=== PATIENT | female | born 1935 | race African-American/Black ===

== ENCOUNTER 2018-07-08 14:48 | Inpatient (IN) | payer MEDICARE, MEDICAID ==
[~2018-07-08] VITALS: Ht 154.9 cm; Wt 65.8 kg
[2018-07-08] MEDS ORDERED: AMLODIPINE BESY10 MG ORAL (20:09)
[2018-07-08] MEDS ORDERED: BENAZEPRIL HCL20 MG ORAL (20:09)
[2018-07-08] MEDS ORDERED: HYDROCHLOROTHIA25 MG ORAL (20:09)
[2018-07-08 21:41] VITALS: BP 179/91
[2018-07-08] MEDS ORDERED: traMADol 50mg tab ORAL PRN (22:15)
[2018-07-08] MEDS ORDERED: Artificial Tears 1.4% Op Soln BOTH EYES PRN (22:15)
--- NOTE | 2018-07-08 23:30 | Consultation ---
DATE OF CONSULTATION: 07/08/2018 CARDIOLOGY CONSULT: CONSULTING PHYSICIAN: Christiano Ivey M.D. REFERRING PHYSICIAN: Jaylon Szymanski M.D. REASON FOR ADMISSION: Heart block. HISTORY OF PRESENT ILLNESS: This is an 82-year-old female, known to me for many years of cardiovascular care. She has a history of hypertensive heart disease and has had a right bundle-branch block for many years. She has been asymptomatic over the past years; however, her baseline heart rate has decreased into the 55 to 70 range with a first-degree AV block developing, but all was asymptomatic. Her baseline echocardiogram in March of this year revealed a normal ejection fraction with mild concentric hypertrophy and minimal degenerative valve disease. Over the past two days, she has been feeling weak with some chest discomfort and [place] [facility] [place] was noted to have a slow heart rate and episodes of complete heart block and escape rhythm in the high 30s. Her blood pressure remained stable. She apparently ruled out for myocardial infarction and was transferred to my care for further management. PAST MEDICAL HISTORY: Blindness, seasonal asthma, hypertension, conduction system disease of the heart, osteoporosis, degenerative disk disease, and hyperlipidemia. ALLERGIES: Penicillin. SOCIAL HISTORY: Negative for smoking, alcohol, or substance abuse. She is a [employer]. She refuses blood products. FAMILY HISTORY: Notable for diabetes in her sister. REVIEW OF SYSTEMS: She is legally blind. She is hard of hearing. There is no history of blood clots in the legs. She has not been on steroids. There is no history of seizure or stroke. She has been on anti-lipid drugs in the past. There is no history of diabetes or thyroid impairment. There is no history of melena or bright red blood per rectum. PHYSICAL EXAMINATION: VITAL SIGNS: Blood pressure 179/91, pulse 61, respiratory rate 18, and afebrile. NECK: Supple. Jugular venous pressure normal. LUNGS: Clear. CARDIAC: Regular rhythm. Slow rate. Normal S1, S2. A 1/6 systolic murmur at apex. ABDOMEN: Soft and nontender. EXTREMITIES: No edema. NEUROLOGIC: She is blind. Nonfocal. LABORATORY AND DIAGNOSTIC DATA: Labs and EKG are [place] [facility] [place]. IMPRESSION: This is an 82-year-old female with hypertensive heart disease and a longstanding history of conduction system disease that has been asymptomatic. She now presents with advanced conduction system disease and episodes of complete heart block. While she has had chest pain, so far there is no evidence of an acute myocardial infarction. RECOMMENDATIONS: 1. Cardiac monitoring. 2. Hydration. 3. Avoid tight blood pressure control. 4. Serial troponin levels. 5. Repeat EKG. 6. EP evaluation for permanent pacemaker. 7. Check thyroid function. Christiano Ivey M.D. DR: WENCESLAO JOB#: [id number] CC:
[2018-07-09] VITALS (12 sets, daily range): BP systolic 131–185; BP diastolic 67–101
[2018-07-09] MEDS: HydrALAZINE 25mg tab ORAL PRN ×2 (01:32→16:43)
[2018-07-09 07:33] LABS: BASOPHILS % (AUTO) 1.2 % (0.0-2.0); EOSINOPHILS % (AUTO) 1.5 % (0.0-3.0); HEMATOCRIT 36.5 % (37.0-47.0); HEMOGLOBIN 12.4 G/DL (12.0-16.0); LYMPHOCYTES % (AUTO) 35.3 % (20.0-45.0); MEAN CORPUSCULAR VOLUME 85 FL (80-99); MONOCYTES % (AUTO) 10.6 % (1.0-10.0); NEUTROPHILS % (AUTO) 51.4 % (45.0-75.0); PLATELET COUNT 250 K/UL (150-450); RED BLOOD COUNT 4.29 M/UL (4.20-5.40); RED CELL DISTRIBUTION WIDTH 12.2 % (11.6-14.8); WHITE BLOOD COUNT 5.2 K/UL (4.8-10.8)
--- NOTE | 2018-07-09 08:04 | Consultation ---
Consult Note Consult Note Cardiac EP Full consult dictated #[id number] Mrs. Carranza is an 82 year woman w/ HTN adm w/ intermittent high grade ( 2:1) av block, v rate 30s-40s associated w/ dizziness and CP. Mild trop elevation - suspect demand ischemia. She appears w/ irreversible , symptomatic AVN or infranodal conduction disease. She is on no meds which would cause bradycardia. TFTs are normal Agree w/ recommendation for permanent pacing. D/w pt, who is agreeable to proceeding. Brenda Potts MD Jul 09, 2018 08:04
--- NOTE | 2018-07-09 08:04 | Pre-Procedure Note/Attestation ---
Pre-Procedure Note/Attestation Complete Prior to Procedure Planned Procedure: left Procedure Narrative: permanent pacemaker Indications for Procedure Pre-Operative Diagnosis: second deg av block w/ 2 to 1 conduction, v 30-40s associated w/ dizziness Attestation I attest that I discussed the nature of the procedure; its benefits; risks and complications; and alternatives (and the risks and benefits of such alternatives ), prior to the procedure, with the patient (or the patient's legal sales representative adding machines). I attest that, if there was a reasonable possibility of needing a blood transfusion, the patient (or the patient's legal sales representative adding machines) was given the [place] [facility] standardized written summary, pursuant to the Jonathan Herbster Blood Safety Act ([place] Health and Safety Code # 1645, as amended). I attest that I re-evaluated the patient just prior to the surgery and that there has been no change in the patient's H&P, except as documented below: none Brenda Potts MD Jul 09, 2018 08:04
[2018-07-09 08:06] LABS: ALANINE AMINOTRANSFERASE 75 U/L (12-78); ALBUMIN/GLOBULIN RATIO 0.7 (1.0-2.7); ALKALINE PHOSPHATASE 68 U/L (46-116); ANION GAP 7 mmol/L (5-15); ASPARTATE AMINO TRANSFERASE 39 U/L (15-37); BILIRUBIN,TOTAL 0.4 MG/DL (0.2-1.0); BLOOD UREA NITROGEN 19 mg/dL (7-18); CALCIUM 9.3 MG/DL (8.5-10.1); CARBON DIOXIDE 26 MMOL/L (21-32); CHLORIDE 109 MMOL/L (98-107); CREATININE 0.8 MG/DL (0.55-1.30); POTASSIUM 3.7 MMOL/L (3.5-5.1); SODIUM 142 MMOL/L (136-145)
[2018-07-09 08:28] LABS: CKMB 2.2 NG/ML (0.0-3.6)
[2018-07-09] MEDS: Heparin 5000 units/ml inj SUBQ SCH ×2 (09:00→21:20)
[2018-07-09] MEDS: Aspirin Baby 81mg ORAL SCH (09:48)
[2018-07-09] MEDS: Vancomycin 750mg/NS 250ml 250 ML IVPB SCH (09:50)
--- NOTE | 2018-07-09 10:00 | Consultation ---
DATE OF CONSULTATION: 07/09/2018 CARDIAC ELECTROPHYSIOLOGY CONSULTATION CONSULTING PHYSICIAN: Brenda Potts M.D. REASON FOR CONSULT: High-grade AV block. HISTORY OF PRESENT ILLNESS: The patient is a very pleasant 82-year-old woman with history of hypertension, who presented to [facility] with episodes of chest tightness and dizziness. She had no syncope. She was reported to have complete heart block. She was noted to have heart rates in the 30s to 40s. She was transferred to [facility] for care with her usual physicians. On telemetry overnight, she has had sinus rhythm with prolonged first-degree AV block and episodes of 2:1 second-degree AV block, rates in the 30s to 40s. At baseline, she has a right bundle-branch block. MEDICATIONS ON ADMISSION: Benazepril, amlodipine, hydrochlorothiazide. ALLERGIES: Penicillin. PAST MEDICAL HISTORY: As noted above. Hypertension, left rotator cuff tear. PAST SURGICAL HISTORY: Status post removal of polyp from the larynx. SOCIAL HISTORY: The patient is a nonsmoker. Does not drink alcohol. She is a Jehovah Witness. PHYSICAL EXAMINATION: VITAL SIGNS: Blood pressure is 138/86, pulse 54 and regular, respirations 20, and afebrile. GENERAL: Alert, well-developed woman, in no acute distress. HEENT: Normocephalic and atraumatic. Pupils are equal, round, and reactive to light. Sclerae anicteric. Oral mucosa are moist. NECK: Supple. There is no jugular venous distention. No thyromegaly. Carotid pulses are 2+ bilaterally without bruits. LUNGS: Clear to auscultation bilaterally. HEART: Bradycardic. Regular. S1, S2 with a 2/6 systolic ejection murmur at the lower left sternal border. No S3, S4, or rubs. ABDOMEN: Soft, nontender. No palpable mass. EXTREMITIES: No cyanosis, clubbing, or edema. Distal lower extremity pulses are 2+ bilaterally. LABORATORY AND DIAGNOSTIC DATA: Hemoglobin 12.4, white blood count 5200, platelets 250,000. Troponin 0.26. Chemistries are pending at [facility]. Chem-panel was normal with potassium of 3.9, BUN 18, and creatinine 0.8. Troponin there was 0.06. TSH 1.85 and free T4 1.2. EKG from [facility] shows sinus rhythm with 2:1 second-degree AV block, ventricular rate of 42 beats per minute. Telemetry here shows sinus rhythm with intermittent first-degree AV block and 2:1 second-degree AV block, rates as low as the 30s. EKG on admission here shows sinus rhythm, first-degree AV block with MA interval of about 400 milliseconds, 66 beats per minute, right bundle-branch block, and right axis deviation. No old EKG is available for comparison. Chest x-ray is pending. ASSESSMENT AND RECOMMENDATIONS: The patient is an 82-year-old woman with history of hypertension, who presents with chest pain and dizziness. Her EKG has no ischemic changes, however, she has second-degree 2:1 AV block intermittently with heart rates as low as the 30s. Her elevated troponin is likely due to demand ischemia. She is on no medications which would explain her bradycardia and has no evidence for thyroid disorder that would cause bradycardia. Given that she has irreversible AV ivan versus infranodal conduction disease, I would agree with recommendation for permanent dual-chamber pacemaker. We would continue to trend troponins. I would obtain an echo to assess left ventricular function. I discussed the pacemaker procedure with the patient and she is in agreement with proceeding. The procedure has been scheduled for later today. Brenad Potts M.D. DR: Mateo JOB#: [id number] CC:
--- NOTE | 2018-07-09 10:45 | History and Physical Report ---
DATE OF ADMISSION: 07/08/2018 CHIEF COMPLAINT: Bradycardia. HISTORY OF PRESENT ILLNESS: The patient is an 82-year-old female. She has history of hypertensive heart disease, chronic right bundle-branch block. She had history of mild asymptomatic bradycardia. She presented to an outside hospital with complaints of chest pain, dizziness, and weakness. She was noted to be in complete heart block with a junctional escape rhythm in the 30s. She was transferred here for continued care. She is currently n.p.o., awaiting pacemaker placement. She is otherwise without complaints. Denies any fevers or chills. No nausea or vomiting. PAST MEDICAL HISTORY: Significant for history of blindness, asthma, hypertension, chronic conduction system disease, history of chronic back pain, osteoporosis, hyperlipidemia. CURRENT MEDICATIONS: Reconciled and reviewed. ALLERGIES: Include penicillin. FAMILY HISTORY: Significant for diabetes. SOCIAL HISTORY: The patient is a [employer]. REVIEW OF SYSTEMS: GENERAL: No fevers or chills. Positive dizziness and weakness. HEENT: No headaches or visual changes. The patient is blind. CARDIOPULMONARY: Mild chest pain, but no shortness of breath. GASTROINTESTINAL: No nausea or vomiting. GENITOURINARY: No urgency or frequency. MUSCULOSKELETAL: No joint pain or swelling. NEUROLOGIC: No evidence of seizures. PHYSICAL EXAMINATION: VITAL SIGNS: Temperature is 98, pulse 54, respirations 18, and blood pressure 138/86. GENERAL: The patient is well developed, in no apparent distress. HEART: Regular rate and rhythm, but bradycardic. LUNGS: Clear. ABDOMEN: Soft, nontender, nondistended. EXTREMITIES: Without clubbing, cyanosis, or edema. LABORATORY DATA: Labs showed white count of 5, hemoglobin 12, hematocrit 36, and platelets of 250,000. Troponin was 0.26. Sodium 142, potassium 3.7, chloride 109, bicarbonate 26, BUN 19, creatinine 0.8. Natriuretic peptide level was 4000. TSH was 5.7. ASSESSMENT: This is a pleasant female with history of hypertension, hyperlipidemia, blindness, asymptomatic bradycardia, who now presents with symptomatic bradycardia and heart block. PLAN: Proceed with pacemaker. Continue antiplatelet therapy. Repeat thyroid function tests. Continue BP treatment. Continue lipid-lowering therapy. Jaylon Szymanski M.D. DR: Darwin JOB#: [id number] CC:
[2018-07-09] MEDS ORDERED: NS 275ml IRRIG ONE (13:00)
[2018-07-09] MEDS ORDERED: Bacitracin Oint 15gm Tube TOPIC ONE (13:00)
[2018-07-09] MEDS ORDERED: NS Irrig 1000ml IRRIG ONE ×2 (13:00→14:21)
[2018-07-09] MEDS ORDERED: Bupivacaine 0.5% Inj 30 ml vial INJ ONE (13:00)
[2018-07-09] MEDS ORDERED: Iothalamate Meglumine 60% 30ML INJ ONE (13:01)
[2018-07-09] MEDS ORDERED: Bacitracin 50000 Units Vial ONE (13:01)
[2018-07-09] MEDS ORDERED: Lidocaine 1% Plain 30 ml INJ ONE ×2 (13:01→13:12)
[2018-07-09] MEDS ORDERED: Midazolam 2mg/2ml Inj ONE (13:13)
[2018-07-09] MEDS ORDERED: Sodium Chloride 10ml vial INJ ONE (13:13)
[2018-07-09] MEDS ORDERED: traMADol 50mg tab ORAL PRN (13:29)
[2018-07-09] MEDS ORDERED: LR 1000ml 1,000 ML IVLG SCH (13:53)
[2018-07-09] MEDS ORDERED: fentaNYL 100 mcg/2 mL IV PRN (14:00)
[2018-07-09] MEDS ORDERED: Hydromorphone 0.5mg/0.5ml inj IVP PRN (14:00)
[2018-07-09] MEDS ORDERED: Norco 5mg/325mg tab ORAL PRN (14:00)
[2018-07-09] MEDS ORDERED: HYDROcodone/Acetamin 7.5/325 tab ORAL PRN (14:00)
[2018-07-09] MEDS ORDERED: LORazepam Inj 2mg/ml 1ml IV PRN (14:00)
[2018-07-09] MEDS ORDERED: Midazolam 2mg/2ml Inj IVP PRN (14:00)
[2018-07-09] MEDS ORDERED: Meperidine 50mg/ml Inj(FOR RIGORS ONLY) IVP PRN (14:00)
[2018-07-09] MEDS ORDERED: Metoclopramide 10mg/2ml Inj IVP PRN (14:00)
[2018-07-09] MEDS ORDERED: oxyCODONE HCL/Acetaminophen 5/325mg ORAL PRN (14:00)
[2018-07-09] MEDS ORDERED: DiphenhydrAMINE 50mg/ml Inj IVP PRN (14:00)
[2018-07-09] MEDS ORDERED: Atropine Sulfate 0.4mg/ml inj IVP PRN (14:00)
--- NOTE | 2018-07-09 14:05 | Anethesia Preoperative Eval ---
Anesthesia Pre-op PMH/ROS General Date of Evaluation: Jul 09, 2018 Time of Evaluation: 13:06 Anesthesiologist: Svetlana ASA Score: ASA 4 Mallampati Score Class I : Soft palate, uvula, fauces, pillars visible Class II: Soft palate, uvula, fauces visible Class III: Soft palate, base of uvula visible Class IV: Only hard plate visible Mallampati Classification: Class II Surgeon: Nicki Diagnosis: CHB Surgical Procedure: Pacemaker Placement Anesthesia History: none Family History: no anesthesia problems Allergies: Coded Allergies: PENICILLIN G (Verified Allergy, Unknown, 07/18/09) Medications: see eMAR Patient NPO?: Yes NPO Date: Jul 09, 2018 NPO Time: 0000 Past Medical History Cardiovascular: Reports: HTN, CAD - Angina, arrhythmia - CHB, other - HL HEENT: Reports: other - Blind Hematology/Immune: Reports: anemia Anesthesia Pre-op Phys. Exam Physician Exam Last Vital Signs Date Time Temp Pulse Resp B/P (MAP) Pulse Ox O2 Delivery O2 Flow Rate FiO2 07/09/18 12:00 62 07/09/18 12:00 97.9 18 179/67 (104) 95 07/09/18 09:00 Room Air Constitutional: NAD Neurologic: CN 2-12 intact Cardiovascular: RRR Respiratory: CTA Gastrointestinal: S/NT/ND Airway Exam Mallampati Score: Class II MO: limited ROM: limited Teeth: missing, intact Anesthesia Pre-op A/P Labs Hematology Test 07/09/18 06:40 White Blood Count 5.2 K/UL (4.8-10.8) Red Blood Count 4.29 M/UL (4.20-5.40) Hemoglobin 12.4 G/DL (12.0-16.0) Hematocrit 36.5 % (37.0-47.0) L Mean Corpuscular Volume 85 FL (80-99) Mean Corpuscular Hemoglobin 28.9 PG (27.0-31.0) Mean Corpuscular Hemoglobin Concent 34.0 G/DL (32.0-36.0) Red Cell Distribution Width 12.2 % (11.6-14.8) Platelet Count 250 K/UL (150-450) Mean Platelet Volume 7.2 FL (6.5-10.1) Neutrophils (%) (Auto) 51.4 % (45.0-75.0) Lymphocytes (%) (Auto) 35.3 % (20.0-45.0) Monocytes (%) (Auto) 10.6 % (1.0-10.0) H Eosinophils (%) (Auto) 1.5 % (0.0-3.0) Basophils (%) (Auto) 1.2 % (0.0-2.0) Chemistry Test 07/08/18 23:00 07/09/18 06:40 Troponin I 0.260 ng/mL (0.000-0.056) 0.258 ng/mL (0.000-0.056) Sodium Level 142 MMOL/L (136-145) Potassium Level 3.7 MMOL/L (3.5-5.1) Chloride Level 109 MMOL/L (98-107) H Carbon Dioxide Level 26 MMOL/L (21-32) Anion Gap 7 mmol/L (5-15) Blood Urea Nitrogen 19 mg/dL (7-18) H Creatinine 0.8 MG/DL (0.55-1.30) Estimat Glomerular Filtration Rate mL/min (>60) Glucose Level 97 MG/DL (74-106) Calcium Level 9.3 MG/DL (8.5-10.1) Magnesium Level 1.7 MG/DL (1.8-2.4) L Total Bilirubin 0.4 MG/DL (0.2-1.0) Aspartate Amino Transf (AST/SGOT) 39 U/L (15-37) H Alanine Aminotransferase (ALT/SGPT) 75 U/L (12-78) Alkaline Phosphatase 68 U/L (46-116) Total Creatine Kinase 178 U/L (26-308) Creatine Kinase MB 2.2 NG/ML (0.0-3.6) Creatine Kinase MB Relative Index 1.2 Pro-B-Type Natriuretic Peptide 4137 pg/mL (0-125) H Total Protein 7.4 G/DL (6.4-8.2) Albumin 3.0 G/DL (3.4-5.0) L Globulin 4.4 g/dL Albumin/Globulin Ratio 0.7 (1.0-2.7) L Thyroid Stimulating Hormone (TSH) 5.783 uiU/mL (0.358-3.740) Risk Assessment & Plan Status Change Before Surgery: No Pre-Antibiotics Dru Gram Ancef IV Given Within 1 Hr of Incision: Yes Time Given: 13:14 Chung Mota MD Jul 09, 2018 14:05
--- NOTE | 2018-07-09 14:07 | Immediate Post-Op Evaluation ---
Immediate Post-Op Evalulation Immediate Post-Op Evalulation Procedure: Pacemaker Placement Date of Evaluation: Jul 09, 2018 Time of Evaluation: 15:19 IV Fluids: 300 NS Blood Products: 0 Estimated Blood Loss: 9 Urinary Output: 0 Blood Pressure Systolic: 131 Blood Pressure Diastolic: 97 Pulse Rate: 61 Respiratory Rate: 16 O2 Sat by Pulse Oximetry: 100 Temperature (Fahrenheit): 97.6 Pain Score (1-10): 2 Nausea: No Vomiting: No Complications 0 Patient Status: awake, reacts, patent, extubated, none Hydration Status: adequate Dru Gram Ancef IV Given Within 1 Hr of Incision: Yes Time Given: 13:14 Chung Mota MD Jul 09, 2018 14:07
--- NOTE | 2018-07-09 15:03 | Operative Note - PDOC ---
Operative Note Operative Note Date of Operation/Procedure: Jul 09, 2018 Pre-op Diagnosis: second deg av block w/ 2 to 1 conduction, v 30-40s associated w/ dizziness Procedure: permanent pacemaker Post-op Diagnosis: same as pre op Post-op Diagnosis: same as pre-op Surgeon: adebayo todd Ground [employer] Supervisor: none Additional Surgeons: none Anesthesiologist: Francesco Mota Anesthesia: local, MAC Specimen: none Complications: none Condition: stable Estimated Blood Loss: minimal Drains: none Implant(s) used?: Yes Indications for Procedure 2nd deg av block, dizziness Description of Procedure dictation # [id number] Brenda Todd MD Jul 09, 2018 15:03
--- NOTE | 2018-07-09 15:26 | Diagnostic Imaging Report ---
INDICATION: Pain, intraoperative TECHNIQUE: Intraoperative imaging during pacemaker placement Fluoroscopy time: And 85 seconds Total dose: 0.87912 mGym2 Total number of images: One COMPARISON: None FINDINGS: Intraoperative imaging demonstrates the lead positions of a pacemaker, lead tips in the expected regions of the right atrium and right ventricular apex IMPRESSION: Intraoperative imaging, as described
--- NOTE | 2018-07-09 16:25 | Diagnostic Imaging Report ---
Indication: Status post pacemaker Technique: One view of the chest Comparison: 2010 Findings: There is left chest pacemaker, lead tips in the expected region of the right atrium and right ventricular apex. The lungs and pleural spaces are clear. Heart size is upper limits of normal. No pneumothorax Impression: Satisfactory position of pacemaker. No radiographic evident complication
--- NOTE | 2018-07-09 17:11 | Cardiology Report ---
APPROVED REPORT EXAM: Two-dimensional and M-mode echocardiogram with Doppler and color Doppler. INDICATION 2nd Degree heart block M-Mode DIMENSIONS IVSd1.8 (0.7-1.1cm)Left Atrium (MM)5.7 (1.6-4.0cm) LVDd3.4 (3.5-5.6cm)Aortic Root2.6 (2.0-3.7cm) PWd1.5 (0.7-1.1cm)Aortic Cusp Exc.1.6 (1.5-2.0cm) LVDs2.0 (2.5-4.0cm) PWs1.8 cm Normal left ventricular chamber size, systolic function and wall motion. Left ventricular ejection fraction estimated to be 65-70 %. Mild left ventricular hypertrophy. No evidence of pericardial effusion. Mild left atrial enlargement. Right ventricular chamber size is at upper normal limits. Right atrial chamber size is within normal limits. Mild focal aortic valve sclerosis with adequate cusp excursion. Mildy thickened mitral valve leaflets with normal excursion. Mild mitral annulus and aortic root calcification. Normal pulmonic valve structure. Normal tricuspid valve structure. IVC is normal in size with physiological collapse. A color flow and spectral Doppler study was performed and revealed: Mild aortic insufficiency. Moderate to severe mitral regurgitation. Normal left ventricular diastolic function. Mild to moderate tricuspid regurgitation. Tricuspid systolic velocities suggests peak right ventricular systolic pressure of 79 mmHg, consistent with severe pulmonary hypertension. Trace pulmonic regurgitation present.
--- NOTE | 2018-07-09 17:45 | Operative Note - Dictated ---
DATE OF OPERATION: 07/09/2018 REPORT OF PERMANENT DUAL-CHAMBER PACEMAKER IMPLANT SURGEON: Brenda Potts M.D. INDICATIONS: High-grade AV block. CLINICAL HISTORY: The patient is an 82-year-old woman who presented with dizziness and was found to be in 2:1 second-degree AV block with baseline right bundle-branch block. Heart rates were in the 30s to 40s. The implanted device is a Biotronik Edora 8, serial number [id number]. Pacing lead in the atrium is a Biotronik Solia, serial number [id number] and in the ventricle was a Solia, serial number [id number]. PACING AND SENSING: In the atrium, sensing is 2.4 millivolts, pacing threshold 0.9 volts at 0.4 milliseconds, lead impedance 448 ohms. In the ventricle, pacing threshold is 0.5 volts at 0.4 milliseconds, sensing NA (100% paced after generator was attached, 10 millivolts prior to generator attachment), lead impedance 624 ohms. FLUOROSCOPY TIME: 3 minutes. X-RAY: 0.98 milligray/m2. ANESTHESIA: Local and intravenous sedation. DESCRIPTION OF PROCEDURE: The patient was was brought to the operating room, received sedation as per the anesthesiologist, Dr. Mota. The left chest was sterilely prepped and draped in the usual manner. The skin and underlying soft tissues over the left deltopectoral groove were infiltrated with 1% Xylocaine local anesthetic. An incision was made. This was carried down to the prepectoral fascia using blunt and Bovie dissection. The left cephalic vein was isolated. A proximal loop and distal tie of silk suture were placed. Two guidewires were advanced under fluoroscopy into the low right atrium. Over one of the guidewires, a 6-Russian SafeSheath was advanced. The guidewire and dilator were removed and the ventricular lead was positioned in the right ventricular apex under fluoroscopy. The screw was advanced under fluoroscopy. The above pacing and sensing thresholds were obtained. There was no diaphragmatic stimulation with pacing at 10 volts. The lead was secured with two nonabsorbable sutures via the suture sleeves. Next, the atrial lead was placed through another 6-Russian introducer that was placed over the remaining guidewire after the guidewire and dilator were removed. The pacing and sensing thresholds were set. A screw was advanced under fluoroscopy and pacing and sensing thresholds were rechecked. There was no diaphragmatic stimulation with pacing at 10 volts in either the atrium or the ventricle. The atrial lead was secured with two nonabsorbable sutures via the suture sleeve. A subcutaneous pocket was created using blunt and Bovie dissection. The pocket was flushed with an antibiotic solution. The pacemaker generator was brought to the field. Atrial and ventricular leads were attached. The setscrews were tightened and checked. The leads and generator were placed into the subcutaneous pocket with the excess lead coiled beneath the generator. The incision was then closed with 2-0 and 4-0 Monocryl after the generator had been secured to the underlying fascia with an 0 silk suture. A sterile dressing was applied. The patient tolerated the procedure well. There were no intraprocedural complications. She was transferred to the recovery area in stable condition. Brenda Potts M.D. DR: Mateo JOB#: [id number] CC:
[2018-07-09] MEDS: Metoprolol Succinate XL 25mg tab ORAL SCH (21:19)
[2018-07-09] MEDS: Atorvastatin 20mg tab ORAL SCH (21:19)
[2018-07-09] MEDS: Tylenol #3 tab (300mg/30mg) ORAL PRN (21:30)
--- NOTE | 2018-07-09 23:29 | Progress Note ---
DATE: 07/09/2018 CARDIOLOGY PROGRESS NOTE SUBJECTIVE: The patient has no shortness of breath, chest pain, or weakness. She is status post permanent pacemaker implant this morning with a Biotronik device. No complications noted. She now has a cardiac rhythm, revealing AV pacing. PHYSICAL EXAMINATION: CHEST: Left chest wall with no swelling or warmth or tenderness. LUNGS: Clear. CARDIAC: Regular. Normal S1 and S2 with no murmur. ABDOMEN: Soft and there is no edema. LABORATORY AND DIAGNOSTIC DATA: Chest x-ray report reveals no pneumothorax. White count 5.2 and hemoglobin 12.4. CK-MB index are negative. Troponin is 0.258, unchanged from yesterday. Pro-natriuretic peptide 4100. Magnesium 1.7. IMPRESSION: 1. Hypertensive and ischemic cardiomyopathy. 2. Advanced conduction system disease. 3. Hypomagnesemia. 4. Status post permanent pacemaker. 5. Blindness. 6. No clinical signs of acute myocardial infarction. PLAN: 1. IV magnesium . 2. Wound care and pain control. 3. Add beta-mattie. 4. Continue statin and anti-platelet therapy. 5. Discharge planning. Christiano Ivey M.D. DR: WALDEMAR JOB#: [id number] CC:
[2018-07-10] VITALS: BP 154/77
[2018-07-10 04:00] VITALS: BP 170/77
[2018-07-10] MEDS: HydrALAZINE 25mg tab ORAL PRN (05:42)
[2018-07-10] MEDS: Tylenol #3 tab (300mg/30mg) ORAL PRN ×2 (05:43→17:59)
[2018-07-10 07:50] VITALS: BP 145/61
[2018-07-10] MEDS ORDERED: Vancomycin 750mg/NS 250ml 250 ML IVPB ONE (08:00)
[2018-07-10] MEDS: Aspirin Baby 81mg ORAL SCH (09:04)
[2018-07-10] MEDS: Metoprolol Succinate XL 25mg tab ORAL SCH (09:04)
[2018-07-10] MEDS: Heparin 5000 units/ml inj SUBQ SCH ×2 (09:06→21:00)
[2018-07-10] MEDS: Vancomycin 750mg/NS 250ml 250 ML IVPB SCH (09:07)
--- NOTE | 2018-07-10 09:14 | 48 Hour Post Anesthesia Eval ---
Post Anesthesia Evaluation Procedure: Pacemaker Placement Date of Evaluation: Jul 10, 2018 Time of Evaluation: 09:12 Blood Pressure Systolic: 146 0: 72 Pulse Rate: 64 Respiratory Rate: 22 Temperature (Fahrenheit): 97.6 O2 Sat by Pulse Oximetry: 98 Airway: patent Nausea: No Vomiting: No Pain Intensity: 3 Hydration Status: adequate Cardiopulmonary Status: stable, mild dyspnea, some wheezing bilaterally Mental Status/LOC: patient returned to baseline Follow-up Care/Observations: n/a Post-Anesthesia Complications: none Follow-up care needed: N/A Mekhi Diaz MD Jul 10, 2018 09:14
[2018-07-10] MEDS ORDERED: Tubing IV Secondary IV ONE (09:15)
[2018-07-10 11:39] VITALS: BP 153/78
--- NOTE | 2018-07-10 11:46 | General Progress Note ---
Assessment/Plan Problem List: (1) Heart block ICD Codes: I45.9 - Conduction disorder, unspecified SNOMED: 534537716 Status: stable, progressing Assessment/Plan cont current rx tele BP rx pt/ot post op care Subjective ROS Limited/Unobtainable: No Constitutional: Reports: no symptoms HEENT: Reports: no symptoms Cardiovascular: Reports: no symptoms Respiratory: Reports: no symptoms Gastrointestinal/Abdominal: Reports: no symptoms Genitourinary: Reports: no symptoms Neurologic/Psychiatric: Reports: no symptoms Endocrine: Reports: no symptoms Hematologic/Lymphatic: Reports: no symptoms Allergies: Coded Allergies: PENICILLIN G (Verified Allergy, Unknown, 07/18/09) All Systems: reviewed and negative except above Subjective s/p uncomplicated pacer. no complaints. paced on monitor. no dizziness Objective Last 24 Hour Vital Signs Date Time Temp Pulse Resp B/P (MAP) Pulse Ox O2 Delivery O2 Flow Rate FiO2 07/10/18 11:39 98.7 61 18 153/78 (103) 95 07/10/18 09:14 64 22 98 07/10/18 09:04 61 145/61 07/10/18 09:04 145/61 07/10/18 09:04 61 145/61 07/10/18 09:00 Room Air 07/10/18 08:00 62 07/10/18 07:50 98.8 61 18 145/61 (89) 93 07/10/18 05:42 170/77 07/10/18 04:00 60 07/10/18 04:00 98.2 61 16 170/77 (108) 94 07/10/18 00:00 97.8 64 18 154/77 (102) 97 07/10/18 00:00 60 07/09/18 21:19 68 163/80 07/09/18 21:00 Nasal Cannula 2.0 07/09/18 20:00 82 07/09/18 20:00 98.0 66 20 163/80 (107) 97 07/09/18 16:43 188/86 07/09/18 16:30 60 07/09/18 16:10 98.0 60 18 167/82 100 Nasal Cannula 3 07/09/18 16:00 72 18 172/81 100 Nasal Cannula 3 07/09/18 15:45 65 22 170/78 100 Nasal Cannula 3 07/09/18 15:30 60 20 170/76 100 Simple Mask 6 07/09/18 15:22 60 20 160/70 100 Simple Mask 6 07/09/18 15:13 60 18 158/77 99 Simple Mask 6 07/09/18 15:08 97.6 60 16 131/77 99 Simple Mask 6 07/09/18 15:06 61 16 100 07/09/18 12:00 62 07/09/18 12:00 97.9 44 18 179/67 (104) 95 Intake and Output 07/09/18 07/10/18 19:00 07:00 Intake Total 350 ml 360 ml Output Total 9 ml 250 ml Balance 341 ml 110 ml Intake Oral 360 ml IV Total 350 ml Output Urine Total 250 ml Estimated Blood Loss 9 ml Height (Feet): 5 Height (Inches): 1.00 Weight (Pounds): 145 General Appearance: WD/WN, alert Neck: supple Cardiovascular: normal rate Respiratory/Chest: chest wall non-tender, lungs clear, normal breath sounds Abdomen: normal bowel sounds, non tender, soft, no organomegaly Neurologic: used car renovator II-XII grossly normal, alert, oriented x 3, responsive Jaylon Szymanski MD Jul 10, 2018 11:46
--- NOTE | 2018-07-10 12:40 | Cardiac Electrophysiology PN ---
Assessment/Plan Problem List: (1) Heart block (2) Hypertension (3) Pulmonary hypertension Status: stable, progressing Status Narrative Mrs. Carranza is stable, s/p permanent pacemaker implant on 07/09. Telemetry shows SR w/ atrial synchronous ventricular pacing. CXR - nl lead position; no ptx. She has mild incisional pain. BP remains elevated, though improving. ECHO noted - normal LV systolic function, severe pulm hypertension, moderate MR , TR Assessment/Plan Continue analgesics prn for incisional pain. Metoprolol added for HTN Possible dc tomorrow, w/ home health service. Subjective Subjective Mrs. Carranza has no c/o dizziness . Mild incisional pain Objective Last 24 Hour Vital Signs Date Time Temp Pulse Resp B/P (MAP) Pulse Ox O2 Delivery O2 Flow Rate FiO2 07/10/18 11:39 98.7 61 18 153/78 (103) 95 07/10/18 09:14 64 22 98 07/10/18 09:04 61 145/61 07/10/18 09:04 145/61 07/10/18 09:04 61 145/61 07/10/18 09:00 Room Air 07/10/18 08:00 62 07/10/18 07:50 98.8 61 18 145/61 (89) 93 07/10/18 05:42 170/77 07/10/18 04:00 60 07/10/18 04:00 98.2 61 16 170/77 (108) 94 07/10/18 00:00 97.8 64 18 154/77 (102) 97 07/10/18 00:00 60 07/09/18 21:19 68 163/80 07/09/18 21:00 Nasal Cannula 2.0 07/09/18 20:00 82 07/09/18 20:00 98.0 66 20 163/80 (107) 97 07/09/18 16:43 188/86 07/09/18 16:30 60 07/09/18 16:10 98.0 60 18 167/82 100 Nasal Cannula 3 07/09/18 16:00 72 18 172/81 100 Nasal Cannula 3 07/09/18 15:45 65 22 170/78 100 Nasal Cannula 3 07/09/18 15:30 60 20 170/76 100 Simple Mask 6 07/09/18 15:22 60 20 160/70 100 Simple Mask 6 07/09/18 15:13 60 18 158/77 99 Simple Mask 6 07/09/18 15:08 97.6 60 16 131/77 99 Simple Mask 6 07/09/18 15:06 61 16 100 General Appearance: WD/WN, no apparent distress, alert EENT: PERRL/EOMI Rhythm: NSR Cardiovascular: normal rate, regular rhythm, no gallop/murmur Respiratory/Chest: lungs clear, other - L infraclav incision - covered w dry dressing. no hematoma Abdomen: normal bowel sounds, non tender, soft Extremities: no swelling Intake and Output 07/09/18 07/10/18 19:00 07:00 Intake Total 350 ml 360 ml Output Total 9 ml 250 ml Balance 341 ml 110 ml Intake Oral 360 ml IV Total 350 ml Output Urine Total 250 ml Estimated Blood Loss 9 ml Brenda Potts MD Jul 10, 2018 12:40
[2018-07-10 16:00] VITALS: BP 150/73
[2018-07-10 20:00] VITALS: BP 138/64
[2018-07-10] MEDS: Atorvastatin 20mg tab ORAL SCH (21:10)
[2018-07-11] VITALS: BP 127/61
[2018-07-11 04:00] VITALS: BP 149/75
[2018-07-11 08:00] VITALS: BP 177/85
[2018-07-11] MEDS ORDERED: NORVASC5 MG ORAL (08:45)
[2018-07-11] MEDS ORDERED: BENAZEPRIL HCL40 MG ORAL (08:45)
[2018-07-11] MEDS ORDERED: METOPROLOL SUCC25 MG ORAL (08:45)
[2018-07-11] MEDS ORDERED: ASPIRIN81 MG ORAL (08:45)
[2018-07-11] MEDS ORDERED: LIPITOR20 MG ORAL (08:45)
--- NOTE | 2018-07-11 08:49 | General Progress Note ---
Assessment/Plan Problem List: (1) Heart block ICD Codes: I45.9 - Conduction disorder, unspecified SNOMED: 777812150 Status: stable, progressing Assessment/Plan cont current rx tele BP rx pt/ot post op care dc planning today Subjective ROS Limited/Unobtainable: No Constitutional: Reports: no symptoms HEENT: Reports: no symptoms Cardiovascular: Reports: no symptoms Respiratory: Reports: no symptoms Gastrointestinal/Abdominal: Reports: no symptoms Genitourinary: Reports: no symptoms Neurologic/Psychiatric: Reports: no symptoms Endocrine: Reports: no symptoms Hematologic/Lymphatic: Reports: no symptoms Allergies: Coded Allergies: PENICILLIN G (Verified Allergy, Unknown, 07/18/09) All Systems: reviewed and negative except above Subjective s/p uncomplicated pacer. no complaints. paced on monitor. no dizziness Objective Last 24 Hour Vital Signs Date Time Temp Pulse Resp B/P (MAP) Pulse Ox O2 Delivery O2 Flow Rate FiO2 07/11/18 04:00 60 07/11/18 04:00 98.0 62 19 149/75 (99) 98 07/11/18 00:00 98.5 62 18 127/61 (83) 95 07/11/18 00:00 60 07/10/18 21:00 Room Air 07/10/18 20:00 60 07/10/18 20:00 98.2 61 18 138/64 (88) 94 07/10/18 18:30 98.9 07/10/18 16:00 98.9 61 18 150/73 (98) 97 07/10/18 16:00 62 07/10/18 12:01 60 07/10/18 11:39 98.7 61 18 153/78 (103) 95 07/10/18 09:14 64 22 98 07/10/18 09:04 61 145/61 07/10/18 09:04 145/61 07/10/18 09:04 61 145/61 07/10/18 09:00 Room Air Intake and Output 07/10/18 07/11/18 19:00 07:00 Intake Total 840 ml 120 ml Balance 840 ml 120 ml Intake Oral 840 ml 120 ml # Voids 4 1 Height (Feet): 5 Height (Inches): 1.00 Weight (Pounds): 145 General Appearance: WD/WN, alert Neck: supple Cardiovascular: normal rate Respiratory/Chest: chest wall non-tender, normal breath sounds Abdomen: normal bowel sounds, non tender, soft Edema: no edema noted Arm (L), no edema noted Arm (R), no edema noted Leg (L), no edema noted Leg (R), no edema noted Pedal (L), no edema noted Pedal (R), no edema noted Generalized Jaylon Szymanski MD Jul 11, 2018 08:49
[2018-07-11] MEDS: Heparin 5000 units/ml inj SUBQ SCH (09:07)
[2018-07-11] MEDS: Aspirin Baby 81mg ORAL SCH (09:08)
[2018-07-11] MEDS: Metoprolol Succinate XL 25mg tab ORAL SCH (09:12)
[2018-07-11 12:00] VITALS: BP 188/88
[2018-07-11] MEDS: Tylenol #3 tab (300mg/30mg) ORAL PRN (12:38)
[2018-07-11 12:43] VITALS: BP 188/88
[2018-07-11] MEDS: HydrALAZINE 25mg tab ORAL PRN (12:43)
--- NOTE | 2018-07-12 12:16 | Discharge Summary ---
Discharge Summary Discharge Summary _ DATE OF ADMISSION: 07/08/2018 DATE OF DISCHARGE: 07/11/2018 REASON FOR ADMISSION: 82 years old female with past medical history of hypertensive heart disease, chronic conduction system disease, chronic right bundle branch block for years, chronic back pain, osteoporosis,, hyperlipidemia, bilateral blindness, asthma, f presented with chest pain, dizziness. Despite advanced conduction system disease, patient with asymptomatic for years. Over the past year the baseline heart rate decreased to 55-70 range with first -degree AV block , she was still asymptomatic. Baseline echocardiogram in March of this year revealed normal ejection fraction with mild concentric hypertrophy and minimal degenerated valve disease. Over the past 2 days, patient reported feeling weak with chest discomfort and was taken to emergency department at [facility] , where she was noted to be bradycardic and with episode of complete heart block escape r rhythm in the high 30s. Blood pressure remained stable. She was ruled out for myocardial infarction and then presented to [facility] for further management. Patient was admitted for further evaluation and possible pacemaker placement. CONSULTANTS: laboratory animal caretaker Dr. Ivey cardiology christian science reader Dr. Potts HOSPITAL COURSE: Patient admitted to telemetry floor. Overnight patient had prolonged first-degree AV block with sinus bradycardia and episodes of 2 to 1 second-degree AV block with heart rate in 30-40. Patient also had a chronic right bundle divya block. Cardiology electrophysiology consult was requested for possible placement of permanent pacemaker . Echocardiogram revealed preserved ejection fraction of 65-70% with mild left ventricular hypertrophy. No evidence of pericardial effusion. No evidence of wall motion abnormality. Moderate to severe mitral regurgitation noted. Right ventricular systolic pressure of 79 consistent with severe pulmonary hypertension. Initial troponin 0.26 , repeated 0.258. EKG revealed no acute ischemic changes. Levels were flat and not suggestive of coronary artery disease , chest pain resolved. Patient was ruled out for acute UT. Elevated troponin was likely due to demand ischemia, Rpg Developer christian science reader agreed with recommendation by laboratory animal caretaker for permanent dual-chamber pacemaker implantation , given advanced conduction system disease and symptoms. Patient consented to procedure and subsequently undergone on 07/09 permanent dual-chamber pacemaker implantation. Postprocedure telemetry showed sinus rhythm with atrial synchronous ventricular pacing. Chest x-ray showed normal lead positioning, no pneumothorax. Patient had mild incisional pain , controlled with current analgesics. However blood pressure remained elevated, though improved. Beta mattie was added to current regimen of calcium channel mattie and TREVER inhibitor. Magnesium was replaced. Antiplatelet therapy with aspirin and statin were continued. DVT prophylaxis provided. Fall precautions maintained. No chest pain, . Patient was stable for discharge home. FINAL DIAGNOSES: Advanced conduction system disease Status post permanent dual-chamber pacemaker implantation Hypertensive heart disease Pulmonary hypertension Blindness Hypomagnesemia DISCHARGE MEDICATIONS: See Medication Reconciliation list. DISCHARGE INSTRUCTIONS: Patient was discharged home Follow up with primary care provider/laboratory animal caretaker and christian science reader in one week. I have been assigned to dictate discharge summary for this account. I was not involved in the patient's management. Shereen Santizo NP Jul 12, 2018 12:16
--- NOTE | 2018-07-13 11:58 | Cardiology Report ---
APPROVED REPORT EKG Measurement Heart [id number] a v paced
--- NOTE | 2018-07-14 01:30 | Progress Note ---
DATE: 07/10/2018 CARDIOLOGY PROGRESS NOTE SUBJECTIVE: The patient feels weak. She is unable to mobilize without assist. She got her pacemaker placed yesterday on the left chest wall. She denies pain. No shortness of breath. OBJECTIVE: VITAL SIGNS: Blood pressure 153/70, pulse 61, respiratory rate 18. HEENT: She is blind. LUNGS: Clear. CARDIAC: Regular. ABDOMEN: Soft. EXTREMITIES: No edema. SKIN: Left chest wall with no erythema or warmth. IMPRESSION: 1. Acute myocardial ischemia. 2. Advanced conduction system disease, status post permanent pacemaker. 3. Mild protein-calorie malnutrition. 4. Hypertensive heart disease. 5. Hypothyroidism. 6. Acute on chronic diastolic congestive heart failure. 7. Functional decline. PLAN: 1. Optimizing physically for mobilization. 2. May need fdc facility. 3. Advance antihypertensive regimen. 4. Beta-mattie added. 5. Outpatient pacemaker interrogation scheduled. Bradley Campos JOB#: [id number] CC:
== END 2018-07-11 15:00 | disposition home or self-care (01) | DRG 244 ==
LOC: 2E 19:05
DX: I44.2 Atrioventricular block, complete (principal); I45.10 Unspecified right bundle-branch block; M81.0 Age-related osteoporosis without current pathological fracture; I11.9 Hypertensive heart disease without heart failure; E78.5 Hyperlipidemia, unspecified; H54.8 Legal blindness, as defined in USA; I25.5 Ischemic cardiomyopathy; E83.42 Hypomagnesemia; I27.20 Pulmonary hypertension, unspecified; I34.0 Nonrheumatic mitral (valve) insufficiency; Z88.0 Allergy status to penicillin
CPT/HCPCS: 36415; 71045; 76001; 80053; 82550; 82553; 83735; 83880; 84443; 84484; 85025; 93005; 93306; J2250

== ENCOUNTER → 2020-03-10 | Outpatient (CLI) | payer MEDICARE, MEDICAID ==
[~2020-03-10] MED LIST: AMLODIPINE BESY10 MG ORAL; ASPIRIN81 MG ORAL; BENAZEPRIL HCL20 MG ORAL; BENAZEPRIL HCL40 MG ORAL; HYDROCHLOROTHIA25 MG ORAL; LIPITOR20 MG ORAL; METOPROLOL SUCC25 MG ORAL; NORVASC5 MG ORAL
--- NOTE | 2020-03-10 15:18 | Diagnostic Imaging Report ---
Indication: Shortness of breath Technique: 2 views of the chest Comparison: 07/09/2018 Findings: The heart is mildly enlarged. There is a left chest pacemaker. The right hemidiaphragm is elevated, and there is some atelectasis at the right lung base. Lungs and pleural spaces are otherwise grossly clear. There is an old fracture deformity of the right shoulder Impression: Right basilar atelectasis. No definite acute process otherwise.
== END | disposition home or self-care (01) ==
LOC: RAD 14:16
DX: R06.02 Shortness of breath (principal); J98.11 Atelectasis; Z95.0 Presence of cardiac pacemaker
CPT/HCPCS: 71046

== ENCOUNTER → 2020-03-21 | Outpatient (CLI) | payer MEDICARE, MEDICAID ==
--- NOTE | 2020-03-21 16:31 | Diagnostic Imaging Report ---
Indication: Knee pain Technique: 4 views of the left knee Comparison: None Findings: Bones are demineralized. No acute fracture or dislocation is identified. There are moderate to severe degenerative changes of the knee joint with tricompartmental joint space narrowing and osteophyte formation. Chondrocalcinosis is also noted, more pronounced in the lateral compartment. Small suprapatellar joint effusion is suggested. There are atherosclerotic vascular calcifications. No radiopaque foreign body. IMPRESSION: Moderate to severe degenerative changes.
== END | disposition home or self-care (01) ==
LOC: RAD 14:23
DX: M25.562 Pain in left knee (principal); M11.262 Other chondrocalcinosis, left knee